=== PATIENT | male | born 1955 | race Caucasian/White ===

== ENCOUNTER 2020-01-12 11:13 | Emergency (ER) | payer OTHER ==
[~2020-01-12] VITALS: Ht 167.6 cm; Wt 90.7 kg
[2020-01-12 11:13] VITALS: BP_SYST 150
[2020-01-12 12:23] VITALS: BP_SYST 150
== END 2020-01-12 11:23 | disposition home or self-care (01) ==
LOC: SED 11:13
DX: S46.812A Strain of other muscles, fascia and tendons at shoulder and upper arm level, left arm, initial encounter (principal); I10 Essential (primary) hypertension; W18.39XA Other fall on same level, initial encounter; Y93.89 Activity, other specified; Y92.89 Other specified places as the place of occurrence of the external cause; Y99.8 Other external cause status
CPT/HCPCS: 99282

== ENCOUNTER 2023-07-27 09:14 | Emergency (ER) | payer OTHER ==
[~2023-07-27] VITALS: Ht 167.6 cm; Wt 90.7 kg
[2023-07-27 09:15] VITALS: BP_SYST 116; PULSE 77; RESP 18; TEMP 97.4; O2SAT 100
[2023-07-27 10:31] VITALS: BP_SYST 116; PULSE 77; RESP 18; TEMP 97.4; O2SAT 100
== END 2023-07-27 10:30 | disposition home or self-care (01) ==
LOC: SED 09:14
DX: S91.012A Laceration without foreign body, left ankle, initial encounter (principal); I10 Essential (primary) hypertension; X58.XXXA Exposure to other specified factors, initial encounter; Y93.89 Activity, other specified; Y92.89 Other specified places as the place of occurrence of the external cause; Y99.8 Other external cause status
CPT/HCPCS: 82948; 99283

== ENCOUNTER 2023-09-24 20:25 | Emergency (ER) | payer OTHER ==
[~2023-09-24] VITALS: Ht 167.6 cm; Wt 90.7 kg
[2023-09-24 20:53] VITALS: BP_SYST 136; PULSE 80; RESP 17; TEMP 98; O2SAT 98
[2023-09-24] MEDS ORDERED: LIDOCAINE 1%, 20 ML MDV 20 ML ONE (21:18)
[2023-09-24] MEDS: DIPHTH,PERTUSS(ACELL),TET VAC 0.5 ML VIAL (Tdap) I.M. ONE (21:39)
[2023-09-24 21:52] VITALS: BP_SYST 136; PULSE 80; RESP 17; TEMP 98; O2SAT 98
== END 2023-09-24 21:56 | disposition home or self-care (01) ==
LOC: SED 20:25
DX: S61.211A Laceration without foreign body of left index finger without damage to nail, initial encounter (principal); E11.9 Type 2 diabetes mellitus without complications; I10 Essential (primary) hypertension; E78.00 Pure hypercholesterolemia, unspecified; W26.0XXA Contact with knife, initial encounter; Y93.89 Activity, other specified; Y92.89 Other specified places as the place of occurrence of the external cause; Y99.8 Other external cause status
CPT/HCPCS: 90715; 99283; J2001